=== PATIENT | male | born 1960 | race Caucasian/White ===

== ENCOUNTER 2022-02-11 06:58 | Day surgery (SDC) | payer BC ==
[2022-02-07 08:34] VITALS: BMI 25.1
[~2022-02-11 06:58] MED LIST: LACTATED RINGERS 1,000 ML IV SCH; LIDOCAINE 1% (10MG/ML) FOR IV START INTRADERMA PRN
[2022-02-11 07:22] VITALS: TEMP 97.6
[2022-02-11] MEDS ORDERED: GLYCOPYRROLATE 0.2 MG/ML 2 ML VIAL ONE (08:10)
[2022-02-11] MEDS ORDERED: PROPOFOL 10 MG/ML 20 ML VIAL IV ONE (08:10)
--- NOTE | 2022-02-11 08:13 | P.GSHP ---
History of Present Illness H&P Date: 02/11/22 Chief Complaint: Colon cancer screening 61-year-old male here today for colonoscopy. Last colonoscopy 13 years ago. No bowel complaints. No family history of colon cancer. Past Medical History Past Medical History: No Reported History History of Any Multi-Drug Resistant Organisms: None Reported Additional Past Surgical History / Comment(s): COLONOSCOPY. DEVIATED SEPTUM REPAIR Past Anesthesia/Blood Transfusion Reactions: No Reported Reaction Past Psychological History: No Psychological Hx Reported Smoking Status: Never smoker Past Alcohol Use History: Occasional Past Drug Use History: None Reported - Past Family History Brother(s) Family Medical History: Cancer Additional Family Medical History / Comment(s): BROTHER # 1- FROM [place]. bROTHER # 2-SKIN CANCER Sister(s) Family Medical History: Cancer Additional Family Medical History / Comment(s): SKIN CANCER Medications and Allergies Home Medications Medication Instructions Recorded Confirmed Type No Known Home Medications 02/07/22 02/07/22 History Allergies Allergy/AdvReac Type Severity Reaction Status Date / Time No Known Allergies Allergy Verified 02/07/22 08:28 Surgical - Exam Vital Signs Temp Pulse Resp BP Pulse Ox 97.6 F 55 L 18 152/78 99 02/11/22 07:20 02/11/22 07:20 02/11/22 07:20 02/11/22 07:20 02/11/22 07:20 Physical exam: General: Well-developed, well-nourished HEENT: Normocephalic, sclerae nonicteric Abdomen: Nontender, nondistended Extremities: No edema Neuro: Alert and oriented Assessment and Plan (1) Colon cancer screening Narrative/Plan: Will proceed with colonoscopy at this time Current Visit: Yes Status: Acute Code(s): Z12.11 - ENCOUNTER FOR SCREENING FOR MALIGNANT NEOPLASM OF COLON SNOMED Code(s): 679919366
--- NOTE | 2022-02-11 08:27 | P.PCN ---
Date of Procedure: 02/11/22 Procedure(s) Performed: PREOPERATIVE DIAGNOSIS: Colon cancer screening POSTOPERATIVE DIAGNOSIS: Normal exam PROCEDURE: Colonoscopy ANESTHESIA: MAC SURGEON: Jos Heredia M.D. SPECIMENS: None ENDOSCOPIC PROCEDURE: The patient was placed on the endoscopy table in the left decubitus position. The Olympus colonoscope was inserted into the anus and passed under direct visualization to the base of the cecum. The appendiceal orifice was visualized. From that point the scope was slowly withdrawn inspecti ng all surfaces carefully. There were no neoplastic inflammatory or polypoid lesions throughout the cecum, ascending, transverse, descending, sigmoid and rectum. There was no visible diverticulosis noted. Digital rectal examination was normal. The patient was taken to the recovery room in stable condition per anesthesia guidelines. RECOMMENDATIONS: Resume diet. Follow-up colonoscopy in 10 years.
[2022-02-11 08:36] VITALS: RESP 16
[2022-02-11 08:54] VITALS: BP 121/76; PULSE 52
== END 2022-02-11 09:28 | disposition home or self-care (01) ==
LOC: ORWHC2ENDO 06:58
PROVIDERS: ATTEND Surgery
DX: Z12.11 Encounter for screening for malignant neoplasm of colon (principal); Z80.8 Family history of malignant neoplasm of other organs or systems; J45.909 Unspecified asthma, uncomplicated
CPT/HCPCS: J2704; G0121

== ENCOUNTER → 2022-06-17 | Outpatient (CLI) | payer BC | END | disposition home or self-care (01) | LOC: CPPFTMAIN 09:34 | PROVIDERS: ATTEND Internal Medicine | DX: J44.9 Chronic obstructive pulmonary disease, unspecified (principal); J45.20 Mild intermittent asthma, uncomplicated; G93.31 Postviral fatigue syndrome; U09.9 Post COVID-19 condition, unspecified | CPT/HCPCS: 94060; 94726; 94729 ==

== ENCOUNTER → 2022-08-20 | Outpatient (CLI) | payer BC ==
[2022-08-20 16:05] LABS: Basophils % (A) 1 %; Eosinophils # (A) 0.2 k/uL (0-0.7); Eosinophils % (A) 2 %; HGB 15.4 gm/dL (13.0-17.5); Lymphocytes # (A) 1.4 k/uL (1.0-4.8); Lymphocytes % (A) 19 %; MCH 31.5 pg (25.0-35.0); MCHC 32.8 g/dL (31.0-37.0); MCV 95.9 fL (80.0-100.0); Mean Platelet Volume 8.4; Monocytes # (A) 0.5 k/uL (0-1.0); Monocytes % (A) 6 %; Neutrophils # (A) 5.3 k/uL (1.3-7.7); Neutrophils % (A) 71 %; Platelet Count 316 k/uL (150-450); RDW 12.9 % (11.5-15.5); WBC 7.5 k/uL (3.8-10.6)
[2022-08-20 17:03] LABS: Total Eosinophil Count 150 #EOS/uL (150-300)
[2022-08-21 05:36] LABS: Alternaria alternata IgE <0.10 kU/L; Aspergillus fumagatus IgE <0.10 kU/L; Birch IgE <0.10 kU/L; Cat Epith & Dander IgE 1.69 kU/L; Cladosporian herbarum IgE <0.10 kU/L; Cockroach IgE <0.10 kU/L; Dog Dander IgE <0.10 kU/L; Elm IgE <0.10 kU/L; Maple (Box Elder) IgE <0.10 kU/L; Oak IgE <0.10 kU/L; Ragweed,Common IgE 1.58 kU/L; Red Top (Bentgrass) IgE 2.35 kU/L
== END | disposition home or self-care (01) ==
LOC: LABWHC1 14:40
PROVIDERS: ATTEND Internal Medicine
DX: Z00.00 Encounter for general adult medical examination without abnormal findings (principal)
CPT/HCPCS: 36415; 82785; 85008; 85025; 86003